=== PATIENT | female | born 1935 | race Caucasian/White ===

== ENCOUNTER 2016-09-24 07:27 | Day surgery (SDC) | payer MEDICARE, BC ==
[~2016-09-24 07:27] MED LIST: ACETAMINOPHEN 1,000 MG/100 ML BTL IV ONE; CEFAZOLIN 1 Gram 1 GM/50 ML BAG IVPB ONE
[2016-09-24] MEDS ORDERED: BUPIVACAINE 0.25% W/EPI MPF 30ML VIAL IVP ONE (13:39)
[2016-09-24] MEDS ORDERED: KETOROLAC 30 MG/ML VIAL IVP ONE (13:46)
[2016-09-24] MEDS ORDERED: ALFENTANIL HCL 500 MCG/1ML, 2ML AMP IV ONE (13:46)
[2016-09-24] MEDS ORDERED: MIDAZOLAM HCL 2MG/2ML VIAL IV ONE (13:46)
[2016-09-24] MEDS ORDERED: LIDOCAINE 2% MDV (20MG/ML) 20ML VIAL IV ONE (13:46)
[2016-09-24] MEDS ORDERED: PROPOFOL 10 MG/ML VIAL IV ONE (13:46)
--- NOTE | 2016-09-26 13:24 | Operative Note ---
DATE OF SURGERY: 09/24/2016 Surgeon: Poli Daily DO PREOPERATIVE DIAGNOSIS: History of breast cancer. POSTOPERATIVE DIAGNOSIS: History of breast cancer. OPERATION: Infusaport removal. Indication: The patient is a 89-year-old female who had a prior history of breast cancer. She is done using her Infusaport and desired removal. Risks, benefits, and alternatives were discussed. Risks including bleeding and infection. She understood this fully. Thereafter, consent was signed and questions answered. PROCEDURE: She was taken to the operating room and placed in a supine position. Local and IV sedation was given per the department of anesthesia. The patient's chest was prepped and draped in the usual fashion. The area over the port was anesthetized with a total of 5 mL of 0.25% Sensorcaine with epinephrine. A 3 cm incision in the skin on the capsule of the Infusaport. This was grasped with a Andrzej and brought into the wound. The capsule was then taken down. Prior to removal, a 3-0 pursestring stitch was placed on the fistulous tract in the subclavian vein. This was tied down as the port was removed. At this time the wound was then closed with 3-0 and 4-0 Vicryl. She was taken to recovery in satisfactory condition. CC: Dr. Lindsay MAIN
== END 2016-09-24 09:50 | disposition home or self-care (01) ==
LOC: SUR 07:27
PROVIDERS: ATTEND Surgery
DX: Z45.2 Encounter for adjustment and management of vascular access device (principal); I10 Essential (primary) hypertension; C50.911 Malignant neoplasm of unspecified site of right female breast
CPT/HCPCS: J1885

== ENCOUNTER 2017-02-16 08:01 | Emergency (ER) | payer MEDICARE, BC ==
[2017-02-16] MEDS ORDERED: HYDROCODONE/APAP 5/325MG TABLET PO ONE (08:23)
--- NOTE | 2017-02-16 08:23 | Emergency Department Record ---
History of Present Illness - General Chief complaint: Lower Extremity Pain Stated complaint: L THIGH PAIN Time Seen by Provider: 02/16/17 08:07 Source: Patient, Family Mode of Arrival: Ambulatory Limitations: No limitations - History of Present Illness Initial comments: 81 yo female presents with leg pain pain for about 1.5 weeks. The pain is over the lateral leg. No bruising or swelling. No weakness. No known trauma. She has a history of lymphedema. She reports no changes in her swelling. 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 She last was diagnosed in 2015. She is no longer on Xarelto. No cough, chest pain or shortness of breath. She saw her PCP on Saturday. She has had the left knee replaced in the past and reports no pain. The back hurt last week but the leg pain preceded the back pain. The back no longer hurts. MD Complaint: Extremity pain -: Week(s) (1.5) Location: Left History of Same: Yes -: Yes Myalgia Radiation: Distal Quality: Aching Consistency: Constant Improves with: Immobilization Worsens with: Palpation, Walking, Weight bearing Associated Symptoms: Myalgias - Related Data Home Medications Medication Instructions Recorded Confirmed Last Taken Anastrozole [Arimidex] 1 mg PO DAILY 02/16/17 02/16/17 02/15/17 Hydrochlorothiazide 25 mg PO DAILY 02/16/17 02/16/17 02/15/17 Metoprolol Succinate 50 mg PO DAILY 02/16/17 02/16/17 02/15/17 Naproxen 500 mg PO ASDIR 02/16/17 02/16/17 02/15/17 Omeprazole [Prilosec] 20 mg PO DAILY 02/16/17 02/16/17 02/15/17 Potassium Chloride 10 meq PO DAILY 02/16/17 02/16/17 02/15/17 Sertraline HCl [Zoloft] 25 mg PO DAILY 02/16/17 02/16/17 02/15/17 Previous Rx's Medication Instructions Recorded Docusate Sodium [Colace] 100 mg PO DAILY PRN #0 cap 04/09/15 Acetaminophen [Tylenol 500Mg Tab] 1,000 mg PO Q6H PRN #0 tablet 04/13/15 Psyllium Husk/Aspartame [Metamucil 3.4 gm PO DAILY powd.pack 04/13/15 Pwd] Hydrocodone/Acetaminophen [Cranberry 1 each PO Q8H #15 tablet 02/16/17 5-325 Tablet] Allergies Allergy/AdvReac Type Severity Reaction Status Date / Time furosemide [From Lasix] Allergy Intermediate NAUSEA AND Verified 02/16/17 08:13 VOMITING benzocaine AdvReac PT UNSURE Verified 02/16/17 08:13 OF REACTION erythromycin base AdvReac PT UNSURE Verified 02/16/17 08:13 OF REACTION Review of Systems Constitutional: Denies: Chills, Fever, Weakness Eyes: Denies: Eye discharge ENT: Denies: Congestion, Throat pain Respiratory: Denies: Cough Cardiovascular: Denies: Chest pain, Palpitations, Syncope Endocrine: Denies: Fatigue Gastrointestinal: Denies: Abdominal pain, Diarrhea, Nausea, Vomiting Genitourinary: Denies: Dysuria, Urgency Musculoskeletal: Reports: As per HPI, Arthralgia, Back pain (resolved), Myalgia Skin: Denies: Bruising, Change in color, Rash Neurological: Denies: Headache, Numbness, Weakness Psychiatric: Denies: Anxiety Hematological/Lymphatic: Denies: Blood Clots, Easy bleeding, Easy bruising, Swollen glands Past Medical History - SOCIAL HISTORY Smoking Status: Former smoker - RESPIRATORY Hx Respiratory Disorders: Yes Hx Bronchitis: Yes (in February took z pack feeling better) - CARDIOVASCULAR Hx Deep Vein Thrombosis: Yes Hx Hypertension: Yes Comment:: uses cane but goes to [employer] 2x's a week - NEURO Hx Neuro Disorders: No Hx Seizures: No - GI Hx Wt Loss/Wt Gain: Yes (recent 5 lb loss) - Hx Bladder Problem: Yes (stress incontinence) - ENDOCRINE Hx Endocrine Disorders: No Comment:: used to take thyroid meds none for 2-3 years - MUSCULOSKELETAL Hx Musculoskeletal Disorders: Yes Hx Arthritis: Yes (osteo) Hx Gout: Yes (pt not sure) Comment:: stoop shouldered. Lymphedema lower extremities - PSYCH Hx Psych Problems: Yes Hx Anxiety: Yes (mild) - HEMATOLOGY/ONCOLOGY Hx Hematology/Oncology Disorders: Yes Hx Bruising: Yes Hx Cancer: Yes (rt breast and uterine) Hx Chemotherapy: Yes (for breast CA) Hx Radiation Therapy: Yes (with uterine CA) Family Medical History Hx Cancer: Mother Hx Heart Disease: Father Hx Stroke: Father Physical Exam - General General Appearance: Alert, Oriented x3, Cooperative, No acute distress Limitations: No limitations - Head Head exam: Atraumatic, Normal inspection - Eye Eye exam: Normal appearance, Conjunctival injection - ENT ENT exam: Normal exam, Mucous membranes moist Ear exam: Normal external inspection Nasal Exam: Normal inspection Mouth exam: Normal external inspection Teeth exam: Normal inspection - Neck Neck exam: Normal inspection, Full ROM. negative: Tenderness - Respiratory Respiratory exam: Normal lung sounds bilaterally. negative: Respiratory distress - Cardiovascular Cardiovascular Exam: Regular rate, Normal rhythm, Normal heart sounds - GI/Abdominal GI/Abdominal exam: Soft. negative: Tenderness - Rectal Rectal exam: Deferred - exam: Deferred - Extremities Extremities exam: Normal inspection - Neurological Neurological exam: Alert, Oriented X3. negative: Motor sensory deficit - Psychiatric Psychiatric exam: Normal affect, Normal mood - Skin Skin exam: Dry, Intact, Normal color, Warm Course - Reevaluation(s) Reevaluation #1: EMR reviewed. Prior imaging and H and P from admission. 02/16/17 08:11 02/16/17 08:32 The patient was examined The pain is lateral without anterior or medial pain in the areas of the deep veins. The popliteal area is non tender. XR ordered The suspicion for DVT is low I did call [facility] and arranged a doppler this morning with results to me this morning 02/16/17 09:07 The US is arranged for 11:30 at [facility] with results to me Disposition Disposition: Discharge Clinical Impression: Left leg pain Disposition: Home, Self-Care Condition: (1) Good Instructions: Musculoskeletal Pain (ED) Additional Instructions: Return if you have swelling, redness, cough, short of breath or any new concerns Call Dr Montoya to be seen first of the week for a recheck Go directly to [facility] for an US of your left leg at 11:30 arrive 15 minutes early. Prescriptions: Hydrocodone/Acetaminophen [Cranberry 5-325 Tablet] 1 each PO Q8H #15 tablet Forms: Patient Portal Access Time of Disposition: 09:07 Quality - Quality Measures Quality Measures: N/A - Blood Pressure Screening Does Patient Have Any of the Following: No Blood Pressure Classification: Pre-Hypertensive BP Reading Systolic Measurement: 140 Diastolic Measurement: 81 Screening for High Blood Pressure: < Pre-Hypertensive BP, F/U Documented > [ G8950] Pre-Hypertensive Follow-up Interventions: Referral to alternative/primary care provider.
--- NOTE | 2017-02-16 21:34 | RADIOLOGY REPORT ---
EXAM: HIP,UNILAT, 2-3 VIEW LEFT HISTORY: LEFT THIGH PAIN FOR A WEEK. NO HISTORY OF TRAUMA. TECHNIQUE: AP pelvis, AP lateral left hip. COMPARISON: No prior pelvis or left hip series. FINDINGS: Diffuse osteopenia is seen consistent with osteoporosis. No acute fracture or dislocation of the left hip evident and no destructive lesion identified. Joint space appears relatively maintained. Degenerative change in the visualized lower lumbar spine. IMPRESSION: 1. OSTEOPOROSIS. 2. LEFT HIP APPEARS OTHERWISE ESSENTIALLY NEGATIVE. JOB NUMBER: [id number] [facility]
--- NOTE | 2017-02-16 21:40 | RADIOLOGY REPORT ---
EXAM: KNEE, LEFT 1 or 2 VIEWS HISTORY: LEFT THIGH PAIN FOR A WEEK. TECHNIQUE: Three views left knee. COMPARISON: Left knee series 04/09/15. FINDINGS: Patient again seen to be post-op left TKA. The tibial component is included in its entirety on the lateral view but no in the other two views, which are centered more towards the distal thigh. The components appear in good position as visualized. There are numerous calcifications seen in the lateral aspect of the left mid thigh. This area was not included on the prior left knee series but was seen in the still earlier 04/08/15 left knee series and appears unchanged. These are of uncertain etiology and recommend correlation with prior work-up. The left knee appears otherwise negative. IMPRESSION: 1. POST-OP LEFT TKA BEFORE. 2. SEVERAL CALCIFICATIONS IN THE SOFT TISSUES OF THE LATERAL ASPECT OF THE LOWER LEFT THIGH APPEARING UNCHANGED FROM 04/08/15. RECOMMEND CORRELATION WITH PRIOR WORK-UP. JOB NUMBER: [id number] [facility]
== END 2017-02-16 09:19 | disposition home or self-care (01) ==
LOC: ER 08:01
DX: M79.652 Pain in left thigh (principal); Z86.718 Personal history of other venous thrombosis and embolism; I10 Essential (primary) hypertension; Z87.891 Personal history of nicotine dependence
CPT/HCPCS: 99283; 99284

== ENCOUNTER 2017-03-08 19:19 | Emergency (ER) | payer MEDICARE, BC ==
--- NOTE | 2017-03-08 20:28 | Emergency Department Record ---
History of Present Illness - General Chief complaint: Female Urogenital Problem Stated complaint: UNABLE TO URINATE/UTI? Time Seen by Provider: 03/08/17 20:25 Source: Patient, Family Mode of Arrival: Wheelchair Limitations: No limitations - History of Present Illness Initial comments: pt has been unable to urinate. she has stopped elizabet flomax.,. she also has abd pain MD Complaint: Other Onset/Timin -: Hour(s) Location: LLQ, RLQ Consistency: Constant Improves with: Urination Associated Symptoms: Abdominal pain - Related Data Home Medications Medication Instructions Recorded Confirmed Last Taken Acetaminophen [Tylenol 500Mg Tab] 500 mg PO Q6H PRN 03/08/17 03/08/17 Unknown Previous Rx's Medication Instructions Recorded Docusate Sodium [Colace] 100 mg PO DAILY PRN #0 cap 04/09/15 Psyllium Husk/Aspartame [Metamucil 3.4 gm PO DAILY powd.pack 04/13/15 Pwd] Tamsulosin HCl [Flomax] 0.4 mg PO DAILY #7 cap.er.24h 03/08/17 Allergies Allergy/AdvReac Type Severity Reaction Status Date / Time furosemide [From Lasix] Allergy Intermediate NAUSEA AND Verified 02/16/17 08:13 VOMITING benzocaine AdvReac PT UNSURE Verified 02/16/17 08:13 OF REACTION erythromycin base AdvReac PT UNSURE Verified 02/16/17 08:13 OF REACTION Travel Screening - Travel/Exposure Within Last 30 Days Have you traveled within the last 30 days?: No - Travel Symptoms Symptom Screening: None Review of Systems Reviewed: No additional complaints except as noted below Constitutional: Reports: As per HPI. Denies: Chills, Fever, Malaise, Night sweats, Weakness, Weight change Eyes: Reports: As per HPI. Denies: Eye discharge, Eye pain, Photophobia, Vision change ENT: Reports: As per HPI. Denies: Congestion, Dental pain, Ear pain, Epistaxis , Hearing loss, Throat pain Respiratory: Reports: As per HPI. Denies: Cough, Dyspnea, Hemoptysis, Stridor, Wheezes Cardiovascular: Reports: As per HPI. Denies: Arrhythmia, Chest pain, Dyspnea on exertion, Edema, Murmurs, Orthopnea, Palpitations, Paroxysmal nocturnal dyspnea, Rheumatic Fever, Syncope Endocrine: Reports: As per HPI. Denies: Fatigue, Heat or cold intolerance, Polydipsia, Polyuria Gastrointestinal: Reports: As per HPI. Denies: Abdominal pain, Constipation, Diarrhea, Hematemesis, Hematochezia, Melena, Nausea, Vomiting Genitourinary: Reports: As per HPI. Denies: Abnormal menses, Discharge, Dyspareunia, Dysuria, Frequency, Hematuria, Incontinence, Retention, Urgency Musculoskeletal: Reports: As per HPI. Denies: Arthralgia, Back pain, Gout, Joint swelling, Myalgia, Neck pain Skin: Reports: As per HPI. Denies: Bruising, Change in color, Change in hair/ nails, Lesions, Pruritus, Rash Neurological: Reports: As per HPI. Denies: Abnormal gait, Confusion, Headache, Numbness, Paresthesias, Seizure, Tingling, Tremors, Vertigo, Weakness Psychiatric: Reports: As per HPI. Denies: Anxiety, Auditory hallucinations, Depression, Homicidal thoughts, Suicidal thoughts, Visual hallucinations Hematological/Lymphatic: Reports: As per HPI. Denies: Anemia, Blood Clots, Easy bleeding, Easy bruising, Swollen glands Past Medical History - SOCIAL HISTORY Smoking Status: Former smoker - RESPIRATORY Hx Respiratory Disorders: Yes Hx Bronchitis: Yes (in February took z pack feeling better) - CARDIOVASCULAR Hx Cardio Disorders: Yes Hx Deep Vein Thrombosis: Yes Hx Hypertension: Yes Comment:: uses cane but goes to [employer] 2x's a week; high cholesterol - NEURO Hx Neuro Disorders: No Hx Seizures: No Comment:: Glaucoma - GI Hx GI Disorders: Yes Hx Wt Loss/Wt Gain: Yes (recent 5 lb loss) Comment:: Gastritis - Hx Genitourinary Disorders: Yes Hx Bladder Problem: Yes (stress incontinence) - ENDOCRINE Hx Endocrine Disorders: No Comment:: used to take thyroid meds none for 2-3 years - MUSCULOSKELETAL Hx Musculoskeletal Disorders: Yes Hx Arthritis: Yes (osteo) Hx Gout: Yes (pt not sure) Comment:: stoop shouldered. Lymphedema lower extremities - PSYCH Hx Psych Problems: Yes Hx Anxiety: Yes (mild) - HEMATOLOGY/ONCOLOGY Hx Hematology/Oncology Disorders: Yes Hx Bruising: Yes Hx Cancer: Yes (rt breast and uterine) Hx Chemotherapy: Yes (for breast CA) Hx Radiation Therapy: Yes (with uterine CA) Family Medical History Any Significant Family History?: Yes Hx Cancer: Mother Hx Heart Disease: Father Hx Stroke: Father Physical Exam - General General Appearance: Alert, Oriented x3, Cooperative, Mild distress - Head Head exam: Normal inspection - Eye Eye exam: Normal appearance, PERRL, EOMI Pupils: Normal accommodation - ENT ENT exam: Normal exam, Mucous membranes moist, Normal external ear exam, Normal orophraynx Ear exam: Normal external inspection. negative: External canal tenderness Nasal Exam: Normal inspection. negative: Discharge, Sinus tenderness Mouth exam: Normal external inspection, Tongue normal Teeth exam: Normal inspection. negative: Dental caries Throat exam: Normal inspection. negative: Tonsillar erythema, Tonsillar exudate - Neck Neck exam: Normal inspection, Full ROM. negative: Tenderness - Respiratory Respiratory exam: Normal lung sounds bilaterally. negative: Respiratory distress - Cardiovascular Cardiovascular Exam: Regular rate, Normal rhythm, Normal heart sounds - GI/Abdominal GI/Abdominal exam: Soft, Normal bowel sounds, Tenderness - Rectal Rectal exam: Deferred - exam: Deferred - Extremities Extremities exam: Normal inspection, Full ROM, Normal capillary refill. negative: Tenderness - Back Back exam: Reports: Normal inspection, Full ROM. Denies: Muscle spasm, Rash noted, Tenderness - Neurological Neurological exam: Alert, CN II-XII intact, Normal gait, Oriented X3 - Psychiatric Psychiatric exam: Normal affect, Normal mood - Skin Skin exam: Dry, Intact, Normal color, Warm Course Vital Signs 03/08/17 20:00 Temperature 97.4 F L Pulse Rate [ 80 Pulse Ox Probe] Respiratory 18 Rate Blood Pressure 141/73 [Left Arm] Pulse Ox 97 - Reevaluation(s) Reevaluation #1: 03/08/17 22:50 pt had bladder scan that showed 148 and straight cath was 160. pt still had abd pain so she was ctd which showed no acute process. she has a large hiatel hernia Reevaluation #2: 03/08/17 22:51 pt feels better Medical Decision Making - Lab Data Result diagrams: 03/08/17 21:05 03/08/17 21:05 Disposition Disposition: Discharge Clinical Impression: Acute urinary retention Abdominal pain Qualifiers: Abdominal location: generalized Qualified Code(s): R10.84 - Generalized abdominal pain Disposition: Home, Self-Care Condition: (1) Good Instructions: Abdominal Pain (ED), Acute Urinary Retention in Women (ED) Additional Instructions: follow up with urologist. return sooner if worse. push fluids Prescriptions: Tamsulosin HCl [Flomax] 0.4 mg PO DAILY #7 cap.er.24h Forms: Patient Portal Access Quality - Quality Measures Quality Measures: N/A - Blood Pressure Screening Does Patient Have Any of the Following: No Blood Pressure Classification: Pre-Hypertensive BP Reading Systolic Measurement: 127 Diastolic Measurement: 76 Screening for High Blood Pressure: < Pre-Hypertensive BP, F/U Documented > [ G8950] Pre-Hypertensive Follow-up Interventions: Follow-up with rescreen every year.
[2017-03-08] MEDS ORDERED: SODIUM CHLORIDE 0.9% 500 ML IV ONE (20:53)
[2017-03-08] MEDS ORDERED: TAMSULOSIN HCL 0.4 MG CAP.ER.24H PO ONE (20:55)
[2017-03-08 20:57] LABS: URINE APPEARANCE CLEAR; URINE BILIRUBIN NEGATIVE (NEGATIVE); URINE BLOOD TRACE-I (NEGATIVE); URINE COLOR YELLOW; URINE GLUCOSE (UA) NEGATIVE (NEGATIVE); URINE KETONE NEGATIVE (NEGATIVE); URINE LEUKOCYTE ESTERASE NEGATIVE (NEGATIVE); URINE NITRITE NEGATIVE (NEGATIVE); URINE PROTEIN NEGATIVE (NEGATIVE); URINE UROBILINOGEN 0.2 E.U./dL (0.20 - 1.00)
[2017-03-08 21:09] LABS: URINE RBC 0 - 2 (NONE SEEN); URINE WBC 0 - 2 (0-2/hpf)
[2017-03-08 21:15] LABS: BASO % 0.3 % (0-6); EOS % 1.7 % (0-6); GRAN % 70.4 % (47-80); HEMATOCRIT 39.1 % (35.0-47.0); HEMOGLOBIN 12.2 gm/dl (11.6-16.0); LYMPH % 19.4 % (16-45); MEAN CELL VOLUME 83.7 fl (81-97); MEAN CORPUSCULAR HEMOGLOBIN 26.1 pg (27-33); MEAN CORPUSCULAR HGB CONC 31.2 g/dl (32-36); MEAN PLATELET VOLUME 10.2 fl (7.4-10.4); MONO % 8.2 % (0-9); PLATELET COUNT 281 K/uL (130-400); RED BLOOD COUNT 4.67 M/uL (3.80-5.40); RED CELL DISTRIBUTION WIDTH 16.8 % (11.5-14.5); WHITE BLOOD COUNT W/O DIFF 7.2 K/uL (4.2-12.2)
[2017-03-08 21:28] LABS: BLOOD UREA NITROGEN 14 mg/dL (8-23); CREATININE 0.6 mg/dL (0.5-0.9); EST GLOMERULAR FILTRATION RATE > 60 mL/min
[2017-03-08 21:29] LABS: TOTAL PROTEIN 6.5 g/dL (6.6-8.7)
[2017-03-08 21:31] LABS: GLUCOSE,RANDOM 109 mg/dL (74-109)
[2017-03-08 21:34] LABS: ALB/GLOB RATIO 1.4 (1.1-1.8); ALBUMIN 3.8 g/dL (4.0-5.0); ALKALINE PHOSPHATASE 83 U/L (35-104); ALT/SGPT 13 U/L (<33); AST/SGOT 20 U/L (10.0-35.0); LIPASE 31 U/L (13-60)
--- NOTE | 2017-03-09 | CT SCAN REPORT ---
EXAM: CT SCAN ABDOMEN/PELVIS WO CONTRAST HISTORY: UNABLE TO URINATE. TECHNIQUE: CT of the abdomen and pelvis performed without intravenous or oral contrast. COMPARISON: None. FINDINGS: There is a large hiatal hernia, which is only partially included on this examination. This appears to include the entire stomach as well as some of the transverse colon. There is a small right pleural effusion. Lung bases otherwise are unremarkable. The unenhanced liver and spleen are unremarkable. No pancreatic mass or inflammatory change identified. There are no calcified gallstones. No adrenal lesion seen. There are atherosclerotic changes in the abdominal aorta without aneurysm. There is a nonobstructing calculus identified in the lower right kidney measuring about 3 mm in size. A 2 mm nonobstructing calculus in the lower left kidney. Two hypodense lesions are seen in the lower right kidney, likely small cysts but not optimally assessed without contrast. There are atherosclerotic changes in the abdominal aorta without aneurysm. There are no dilated bowel loops. There is a small fat-containing umbilical hernia. There is no pelvic mass, abscess, or adenopathy. There is no free air or free fluid. There is a small fat-containing left inguinal hernia. The urinary bladder is not dilated. The uterus is surgically absent. IMPRESSION: 1. THERE IS A LARGE HIATAL HERNIA CONTAINING THE ENTIRE STOMACH AND ALSO A LOOP OF NONDILATED TRANSVERSE COLON. 2. SMALL RIGHT PLEURAL EFFUSION. 3. BILATERAL NONOBSTRUCTING INTRARENAL CALCULI. 4. SMALL UMBILICAL HERNIA. 5. SMALL RIGHT RENAL CYSTS. 6. SMALL FAT-CONTAINING LEFT INGUINAL HERNIA. 7. NOT MENTIONED ABOVE, ARTHRITIC CHANGE AND SCOLIOSIS IN THE LUMBAR SPINE. JOB NUMBER: [id number] [facility]
== END 2017-03-08 23:04 | disposition home or self-care (01) ==
LOC: ER 19:19
DX: K44.9 Diaphragmatic hernia without obstruction or gangrene (principal); R33.8 Other retention of urine; R10.84 Generalized abdominal pain
CPT/HCPCS: 74176; 80053; 81001; 83605; 83690; 85025; 96360; 96361; 99284